=== PATIENT | male | born 1945 | race Caucasian/White ===

== ENCOUNTER 2020-12-23 08:56 | Day surgery (SDC) | payer BC, MEDICARE ==
[2020-12-23] MEDS ORDERED: Propofol 200 MG/20 ML SDV IV ONE (08:57)
[2020-12-23] MEDS ORDERED: Midazolam 1 MG/ML 2 ML SDV IV ONE (08:57)
[2020-12-23] MEDS ORDERED: Sodium Chloride 0.9% 10 ML Syringe FLUSH PRN (09:00)
[2020-12-23] MEDS ORDERED: Lactated Ringers 1,000 ML IV SCH (09:00)
[2020-12-23] MEDS ORDERED: ceFAZolin 1 GM in Sodium Chloride 0.9% 50 ML IV ONE (10:30)
[2020-12-23] MEDS ORDERED: ceFAZolin 1 GM Vial IVPUSH ONE (10:30)
[2020-12-23] MEDS ORDERED: Lidocaine 1% with EPINEPHrine 1:100,000 20 ML MDV INJECT ONE (10:50)
[2020-12-23] MEDS ORDERED: Bupivacaine 0.25% 30 ML SDV INJECT ONE (10:50)
[2020-12-23] MEDS ORDERED: Heparin Sodium 10 Units/ML 5 ML Syringe FLUSH ONE (10:51)
--- NOTE | 2020-12-23 11:32 | PCM.HPR ---
H & P Addendum review - H & P Addendum Review Date of Original H & P: 12/11/20 Date Reviewed: 12/23/20 Time Reviewed: 10:10 Patient was Examined: No Changes
--- NOTE | 2020-12-23 11:33 | PCM.OPNOTE ---
- General Post-Op/Procedure Note Date of Surgery/Procedure: 12/23/20 Operative Procedure(s): A port placement Pre Op Diagnosis: pancreatic Ca Post-Op Diagnosis: Same Anesthesia Technique: Local, MAC Primary Surgeon: Issac ANGUIANO in mLs: 5 Complications: None Condition: Good
--- NOTE | 2020-12-23 12:15 | CR ---
INDICATION: Port placement. C-ARM FLUOROSCOPY LESS THAN 1 HOUR IN OR: 1.1 minutes C-arm fluoroscopy time utilized in placement of a port. On a single image obtained, the port tip appears to be in the area of the SVC above the right atrium. MTDD
--- NOTE | 2020-12-23 12:35 | CR ---
INDICATION: Post port placement. CHEST ONE VIEW: An AP upright view of the chest was obtained 02/22/[address] of the chest dated 11/12/20. There is now noted an approximately 25-35% pneumothorax on the left. Heavy markings are noted which may be on the basis of pulmonary fibrosis in general. Again, no focal consolidating pneumonia or effusion was seen. The heart did not appear enlarged. The aorta is tortuous with calcification in the arch and descending portion. A left subclavian port is noted with its tip in good position in the SVC above the right atrium. IMPRESSION: 1. Pneumothorax right apical. 2. Port in good position. Report was given in person to Dr. Hester at 1200 hours 12/23/20. [facility]
[2020-12-23] MEDS ORDERED: Dexamethasone 4 MG/ML SDV IVPUSH ONE (12:43)
[2020-12-23] MEDS ORDERED: diphenhydrAMINE 50 MG/ML SDV IVPUSH ONE (12:44)
--- NOTE | 2020-12-23 13:57 | PCM.OPNOTE ---
- General Post-Op/Procedure Note Date of Surgery/Procedure: 12/23/20 Operative Procedure(s): Left CT Pre Op Diagnosis: Left PTX Post-Op Diagnosis: Same Anesthesia Technique: Local Primary Surgeon: Issac Hester Complications: None Condition: Good
--- NOTE | 2020-12-23 14:13 | OR ---
DATE OF OPERATION: 12/23/2020 SURGEON: Issac Hester MD PREOPERATIVE DIAGNOSIS: Pancreatic cancer, need for chemotherapy. POSTOPERATIVE DIAGNOSIS: Pancreatic cancer, need for chemotherapy. PROCEDURE: A port placement, left subclavian vein. ANESTHESIA: Local MAC. DESCRIPTION OF PROCEDURE: The patient was brought to the operating room where IV sedation was administered. Left chest and neck region were prepped with ChloraPrep and draped sterilely. 1% lidocaine with epinephrine was used for local anesthesia. Left subclavian vein was cannulated after 2 attempts with good dark blood return. J-wire was passed and in the superior vena cava confirmed on fluoroscopy. A port incision was then made and a pocket made inferiorly. I brought the wire into the incision and placed the dilator and Cook introducer over the wire. The dilator and wire were removed leaving the introducer in place. Catheter was then further previously flushed, catheter was then inserted, and the sheath peeled away. Fluoroscopy was used to confirm this at the level of the atrium and cut at 25 cm and connected to the previously flushed A port. This was aspirated and flushed with good return. A port was secured to the pectoral fascia with 2-0 Vicryl. Skin was closed with 4-0 Vicryl subcutaneous sutures and running 4-0 Vicryl subcuticular suture. Benzoin and Steri-Strips were placed and a sterile occlusive dressing applied. A 1-inch Lugo needle was then used to access the port and aspirated with good blood return. This was then flushed with 5 mL of heparin lock. Needle will be kept in place for next chemo session in 2 days. Chest x-ray will be obtained on same-day surgery. Estimated blood loss 5 mL. /[id number] RAMY/DANYA
--- NOTE | 2020-12-23 14:16 | CR ---
INDICATION: Post port placement pneumothorax re-check. CHEST ONE VIEW: PA expiration view of the chest 12/23/20 at 1316 hours was compared with 1153 hours and reveals a marked increase in the degree of pneumothorax on the left which appears to be 60-75% currently with atelectatic- appearing lung present. No other changes or new acute process was identified. Report was called immediately to Dr. Hester after the examination was completed. JOYA
--- NOTE | 2020-12-23 14:42 | CR ---
INDICATION: Post percutaneous chest tube placement. CHEST ONE VIEW: An AP portable upright view of the chest was obtained 12/23/20 at 1416 hours and compared with 1316 hours revealing a chest tube in place on the left with the pneumothorax almost completely evacuated with there being a residual of approximately 10%. No other change or new acute process was identified with minimal linear atelectatic change at the left lower lung field. MTDD
--- NOTE | 2020-12-24 06:00 | OR ---
DATE OF OPERATION: 12/23/2020 SURGEON: Issac Hester MD PREOPERATIVE DIAGNOSIS: Left pneumothorax. POSTOPERATIVE DIAGNOSIS: Left pneumothorax. PROCEDURE: Placement of percutaneous left chest tube. ANESTHESIA: Local. DESCRIPTION OF PROCEDURE: The patient had an A port placed this morning for chemotherapy. This was done to the left subclavian vein. Postoperative chest x- ray shows a pneumothorax. This was observed for an hour with a repeat chest x- ray which showed enlarging; therefore, chest tube was recommended. In the patient's room, his left anterior chest area was prepped with ChloraPrep and draped sterilely. 1% lidocaine was used for local anesthesia. In approximately the 3rd intercostal space, the catheter was inserted without difficulty. This was placed to tubing and a Heimlich valve with good air returned and fluttering of the valve. The catheter was secured in place with 2- 0 silk. A sterile dressing was applied. The patient tolerated this well. Postprocedure chest x-ray will be obtained. /[id number] RAMY/DANYA
== END 2020-12-23 14:38 | disposition home or self-care (01) ==
LOC: FB.SDS 08:56
PROVIDERS: ATTEND Surgery
DX: C25.9 Malignant neoplasm of pancreas, unspecified (principal); D35.02 Benign neoplasm of left adrenal gland; J93.9 Pneumothorax, unspecified; E78.5 Hyperlipidemia, unspecified; F17.210 Nicotine dependence, cigarettes, uncomplicated; Z88.8 Allergy status to other drugs, medicaments and biological substances
CPT/HCPCS: 00532-QZ; 71045; 76000; J0690; J1100; J1200; J1642; J2250; J2704; J3490; J7120

== ENCOUNTER 2020-12-27 15:57 | Inpatient (IN) | payer BC, MEDICARE ==
--- NOTE | 2020-12-27 17:09 | EDM.PDOC ---
ED HPI GENERAL MEDICAL PROBLEM - General Chief Complaint: Fever Stated Complaint: DRAINAGE IN CHEST TUBE Time Seen by Provider: 12/27/20 16:40 Source of Information: Reports: Patient History Limitations: Reports: No Limitations - History of Present Illness INITIAL COMMENTS - FREE TEXT/NARRATIVE: Pt with pneumothorax and chest tube placed on Saturday 12/23. developed fever of 100.4 and noted drainage in tube to have turned yellow . Took tylenol and came to ER denies any abd pain and diarrhea pt also has pancreatic cancer and is chemotherapy Onset: Today Location: Reports: Chest Quality: Reports: Ache Severity: Moderate Improves with: Reports: None Worsens with: Reports: None Associated Symptoms: Reports: Malaise Treatments REHAB AIDE: Reports: Acetaminophen - Related Data Allergies Allergy/AdvReac Type Severity Reaction Status Date / Time bupropion HCl Allergy Facial Verified 12/23/20 09:53 [From Wellbutrin] Swelling atorvastatin [From Lipitor] AdvReac Muscle Verified 12/23/20 09:53 Aches Home Meds: Home Meds Amylase/Lipase/Protease [Doris LAM 6,000 Unit] 2 cap PO TID 12/22/20 [History] Aspirin 81 mg PO DAILY 12/22/20 [History] LORazepam [Ativan] 1 mg PO TID 12/22/20 [History] Latanoprost [Xalatan 0.005% Ophth Soln] 1 drop EYEBOTH BEDTIME 12/22/20 [History] Lutein 10 mg PO DAILY 12/22/20 [History] Multivitamin 1 tab PO DAILY 12/22/20 [History] Omeprazole Magnesium [Prilosec Otc] 20 mg PO DAILY 12/22/20 [History] Pregabalin [Lyrica] 150 mg PO TID 12/22/20 [History] Sertraline [Zoloft] 150 mg PO DAILY 12/22/20 [History] Timolol [Betimol 0.5% Ophth Soln] 1 drop EYEBOTH BID 12/22/20 [History] traZODone 50 mg PO BEDTIME 12/22/20 [History] Past Medical History HEENT History: Reports: Glaucoma Cardiovascular History: Reports: High Cholesterol, PVD Respiratory History: Reports: None Gastrointestinal History: Reports: Diverticulosis, GERD Genitourinary History: Reports: None Musculoskeletal History: Reports: Neck Pain, Chronic Neurological History: Reports: Neuropathy, Peripheral Psychiatric History: Reports: Addiction, Anxiety, Depression, Other (See Below) Other Psychiatric History: ALCOHOLISM IN REMISSION. INSOMNIA Endocrine/Metabolic History: Reports: None Hematologic History: Reports: None Immunologic History: Reports: None Oncologic (Cancer) History: Reports: Pancreatic Dermatologic History: Reports: None - Past Surgical History Head Surgeries/Procedures: Reports: None HEENT Surgical History: Reports: None Cardiovascular Surgical History: Reports: None Respiratory Surgical History: Reports: None GI Surgical History: Reports: Colonoscopy Endocrine Surgical History: Reports: None Neurological Surgical History: Reports: Discectomy Musculoskeletal Surgical History: Reports: None Social & Family History - Caffeine Use Caffeine Use: ED ROS GENERAL - Review of Systems Review Of Systems: See Below Constitutional: Reports: Fever, Malaise, Weakness, Fatigue, Decreased Appetite HEENT: Reports: No Symptoms Respiratory: Reports: No Symptoms, Cough. Denies: Shortness of Breath, Wheezing, Pleuritic Chest Pain Cardiovascular: Reports: No Symptoms Endocrine: Reports: Fatigue GI/Abdominal: Reports: Anorexia, Decreased Appetite. Denies: Abdominal Pain : Reports: No Symptoms Musculoskeletal: Reports: No Symptoms Skin: Reports: Rash (chronic) Neurological: Reports: No Symptoms Psychiatric: Reports: No Symptoms Hematologic/Lymphatic: Reports: No Symptoms ED EXAM, SEPSIS - Physical Exam Exam: See Below Exam Limited By: No Limitations General Appearance: Alert, WD/WN, No Apparent Distress Eye Exam: Bilateral Eye: EOMI Ears: Normal External Exam Nose: Normal Inspection Throat/Mouth: Normal Oropharynx Head: Atraumatic, Normocephalic Neck: Supple, Non-Tender Respiratory/Chest: Lungs Clear, Normal Breath Sounds, Other (left sideo f chest wall with POrt: yellow discharge over port area noted ) Cardiovascular: Normal Peripheral Pulses (tube draining minimal yellow fluid) Peripheral Pulses: 2+: Dorsalis Pedis (L), Dorsalis Pedis (R) GI/Abdominal Exam: Soft, Non-Tender Back: Full Range of Motion Extremities: Normal Inspection, Normal Range of Motion Neurological: Alert, Oriented, CN II-XII Intact Psychiatric: Depressed Mood, Flat Affect Skin: Warm, Dry, Normal Color, Erythema Course - Vital Signs Last Recorded V/S: Last Vital Signs Temp 36.6 C 12/27/20 19:30 Pulse 69 12/27/20 19:30 Resp 16 12/27/20 19:30 BP 149/55 H 12/27/20 19:30 Pulse Ox 98 12/27/20 19:30 - Orders/Labs/Meds Orders: Active Orders 24 hr Category Date Time Status Patient Status [ADT] Routine ADT 12/27/20 18:48 Active Notify Provider Consults [RC] ASDIRECTED Care 12/27/20 18:59 Active Notify Provider Vital Signs [RC] ASDIRECTED Care 12/27/20 18:51 Active Oxygen Therapy [RC] PRN Care 12/27/20 18:48 Active RT Aerosol Therapy [RC] ASDIRECTED Care 12/27/20 18:57 Active VTE/DVT Education [RC] Per Unit Routine Care 12/27/20 18:48 Active Vital Signs [RC] Q4H Care 12/27/20 18:48 Active Consult to Physician [CONS] Routine Cons 12/27/20 18:47 Ordered Regular Diet [DIET] Diet 12/28/20 Breakfast Active Chest 2V [CR] AM Exams 12/28/20 05:11 Ordered CBC WITH AUTO DIFF [HEME] AM Lab 12/28/20 05:11 Ordered COMPREHENSIVE METABOLIC PN,CMP [CHEM] AM Lab 12/28/20 05:11 Ordered CULTURE BLOOD [BC] Urgent Lab 12/27/20 17:03 Received CULTURE BLOOD [BC] Urgent Lab 12/27/20 17:10 Received MAGNESIUM [CHEM] AM Lab 12/28/20 05:11 Ordered Acetaminophen [TylenoL] Med 12/27/20 18:47 Active 650 mg PO Q4H PRN Acetaminophen/HYDROcodone [Eagle 325-5 MG] Med 12/27/20 18:47 Active 1 tab PO Q4H PRN Albuterol [Proventil Neb Soln] Med 12/27/20 18:47 Active 2.5 mg NEB Q2H PRN Docusate Sodium/Sennosides [Senna Plus] Med 12/27/20 18:47 Active 1 tab PO BID PRN Ibuprofen [Motrin] Med 12/27/20 18:47 Active 600 mg PO Q6H PRN Magnesium Hydroxide [Milk of Magnesia] Med 12/27/20 18:47 Active 30 ml PO Q12H PRN Morphine Med 12/27/20 18:47 Active 2 mg IVPUSH Q2H PRN Ondansetron [Zofran ODT] Med 12/27/20 18:47 Active 4 mg PO Q4H PRN Sodium Chloride 0.9% [Normal Saline] 1,000 ml Med 12/27/20 17:15 Active IV ASDIRECTED Sodium Chloride 0.9% [Normal Saline] 1,000 ml Med 12/27/20 18:00 Active IV ASDIRECTED Zolpidem [Ambien] Med 12/27/20 18:47 Active 5 mg PO BEDTIME PRN Blood Culture x2 Reflex Set [OM.PC] Urgent Oth 12/27/20 16:54 Ordered Resuscitation Status Routine Resus Stat 12/27/20 18:47 Ordered Medication Orders Acetaminophen (Acetaminophen 325 Mg Tab) 650 mg PO Q4H PRN PRN Reason: Pain (Mild 1-3)/fever Hydrocodone Bitart/Acetaminophen (Acetaminophen/Hydrocodone 325-5 Mg Tab) 1 tab PO Q4H PRN PRN Reason: Pain (moderate 4-6) Albuterol (Albuterol 0.083% 2.5 Mg/3 Ml Neb Soln) 2.5 mg NEB Q2H PRN PRN Reason: Shortness Of Breath/wheezing Lipase/Protease/Amylase (Amylase/Lipase/Protease 5,000 Unit Cap.Cr) 2 cap PO TID [facility] Last Admin: 12/27/20 20:47 Dose: 2 cap Documented by: UMER Aspirin (Aspirin 81 Mg Tab.Chew) 81 mg PO DAILY [facility] Sodium Chloride (Normal Saline) 1,000 mls @ 100 mls/hr IV ASDIRECTED [facility] Last Admin: 12/27/20 20:23 Dose: 100 mls/hr Documented by: Infusion: 12/27/20 19:51 Dose: 1,000 mls/hr Documented by: Infusion: 12/27/20 19:00 Dose: 1,000 mls/hr Documented by: Admin: 12/27/20 17:30 Dose: 100 mls/hr Documented by: YONATHAN Sodium Chloride (Normal Saline) 1,000 mls @ 999 mls/hr IV ASDIRECTED [facility] Piperacillin Sod/Tazobactam (Sod 3.375 gm/ Sodium Chloride) 50 mls @ 100 mls/hr IV Q6H [facility] Last Admin: 12/28/20 00:04 Dose: 100 mls/hr Documented by: UMER Ibuprofen (Ibuprofen 600 Mg Tab) 600 mg PO Q6H PRN PRN Reason: Pain (mild 1-3) Latanoprost (Latanoprost 0.005% Ophth Soln 2.5 Ml Bottle) 0 ml EYEBOTH BEDTIME [facility] Last Admin: 12/27/20 20:45 Dose: 1 drop Documented by: UMER Lorazepam (Lorazepam 1 Mg Tab) 1 mg PO TID [facility] Last Admin: 12/27/20 20:46 Dose: 1 mg Documented by: UMER Magnesium Hydroxide (Magnesium Hydroxide 400 Mg/5 Ml Susp 30 Ml Cup) 30 ml PO Q12H PRN PRN Reason: Constipation Morphine Sulfate (Morphine 2 Mg/Ml Syringe) 2 mg IVPUSH Q2H PRN PRN Reason: Pain (severe 7-10) Ondansetron HCl (Ondansetron 4 Mg Tab.Dis) 4 mg PO Q4H PRN PRN Reason: nausea, able to take PO Pantoprazole Sodium (Pantoprazole 40 Mg Tab.Cr) 40 mg PO ACBREAKFAST [facility] Pregabalin (Pregabalin 75 Mg Cap) 150 mg PO TID [facility] Last Admin: 12/27/20 20:45 Dose: 150 mg Documented by: UMER Senna/Docusate Sodium (Docusate Sodium/Sennosides 50-8.6 Mg Tab) 1 tab PO BID PRN PRN Reason: Constipation Sertraline HCl (Sertraline 100 Mg Tab) 150 mg PO DAILY [facility] Timolol Maleate (Timolol Maleate 0.5% Ophth Soln 5 Ml Bottle) 0 ml EYEBOTH BID [facility] Last Admin: 12/27/20 20:52 Dose: Not Given Documented by: UMER Zolpidem Tartrate (Zolpidem 5 Mg Tab) 5 mg PO BEDTIME PRN PRN Reason: Sleep Labs: Laboratory Tests 12/27/20 12/27/20 12/27/20 Range/Units 17:10 17:10 17:10 WBC 8.6 (3.2-10.1) x10-3/uL RBC 3.85 L (3.90-5.90) x10(6)uL Hgb 11.8 L (12.9-17.7) g/dL Hct 35.0 L (38.3-50.1) % MCV 90.9 (80.8-98.7) fL MCH 30.8 (27.0-33.3) pg MCHC 33.8 (28.7-35.3) g/dL RDW 13.8 (12.4-15.0) % Plt Count 158 (117-477) x10(3)uL MPV 9.5 (6.7-11.0) fL Add Manual Diff Yes Neutrophils % (Manual) 91 H (46-82) % Band Neutrophils % 3 (0-6) % Lymphocytes % (Manual) 3 L (13-37) % Monocytes % (Manual) 1 L (4-12) % Eosinophils % (Manual) 2 (0-5) % Sodium 137 (135-145) mmol/L Potassium 4.1 (3.5-5.3) mmol/L Chloride 99 L D (100-110) mmol/L Carbon Dioxide 26 (21-32) mmol/L BUN 12 (7-18) mg/dL Creatinine 0.9 (0.70-1.30) mg/dL Est Cr Clr Drug Dosing 75.04 mL/min Estimated GFR (MDRD) > 60 (>60) BUN/Creatinine Ratio 13.3 (9-20) Glucose 283 H D (80-116) mg/dL Lactic Acid 2.0 (0.4-2.0) mmol/L Calcium 9.4 (8.6-10.2) mg/dL Total Bilirubin 1.5 H (0.1-1.3) mg/dL AST 43 H D (5-25) IU/L ALT 78 H D (12-36) U/L Alkaline Phosphatase 413 H (56-112) IU/L C-Reactive Protein (0.5-0.9) mg/dL NT-Pro-B Natriuret Pep (<=125) pg/mL Total Protein 6.2 (6.0-8.0) g/dL Albumin 3.0 L (3.2-4.6) g/dL Globulin 3.2 g/dL Albumin/Globulin Ratio 0.9 12/27/20 12/27/20 Range/Units 17:10 17:10 WBC (3.2-10.1) x10-3/uL RBC (3.90-5.90) x10(6)uL Hgb (12.9-17.7) g/dL Hct (38.3-50.1) % MCV (80.8-98.7) fL MCH (27.0-33.3) pg MCHC (28.7-35.3) g/dL RDW (12.4-15.0) % Plt Count (117-477) x10(3)uL MPV (6.7-11.0) fL Add Manual Diff Neutrophils % (Manual) (46-82) % Band Neutrophils % (0-6) % Lymphocytes % (Manual) (13-37) % Monocytes % (Manual) (4-12) % Eosinophils % (Manual) (0-5) % Sodium (135-145) mmol/L Potassium (3.5-5.3) mmol/L Chloride (100-110) mmol/L Carbon Dioxide (21-32) mmol/L BUN (7-18) mg/dL Creatinine (0.70-1.30) mg/dL Est Cr Clr Drug Dosing mL/min Estimated GFR (MDRD) (>60) BUN/Creatinine Ratio (9-20) Glucose (80-116) mg/dL Lactic Acid (0.4-2.0) mmol/L Calcium (8.6-10.2) mg/dL Total Bilirubin (0.1-1.3) mg/dL AST (5-25) IU/L ALT (12-36) U/L Alkaline Phosphatase (56-112) IU/L C-Reactive Protein 32.7 H* (0.5-0.9) mg/dL NT-Pro-B Natriuret Pep 159 H (<=125) pg/mL Total Protein (6.0-8.0) g/dL Albumin (3.2-4.6) g/dL Globulin g/dL Albumin/Globulin Ratio Meds: Medications Generic Name Dose Route Start Last Admin Trade Name Freq PRN Reason Stop Dose Admin Acetaminophen 650 mg 12/27/20 18:47 Acetaminophen 325 Mg Tab PO Q4H PRN Pain (Mild 1-3)/fever Hydrocodone Bitart/Acetaminophen 1 tab 12/27/20 18:47 Acetaminophen/Hydrocodone 325-5 Mg Tab PO Q4H PRN Pain (moderate 4-6) Albuterol 2.5 mg 12/27/20 18:47 Albuterol 0.083% 2.5 Mg/3 Ml Neb Soln NEB Q2H PRN Shortness Of Breath/wheezing Lipase/Protease/Amylase 2 cap 12/27/20 21:00 12/27/20 20:47 Amylase/Lipase/Protease 5,000 Unit Cap.Cr PO 2 cap TID DIPTI Administration Aspirin 81 mg 12/28/20 09:00 Aspirin 81 Mg Tab.Chew PO DAILY DIPTI Sodium Chloride 1,000 mls @ 100 mls/hr 12/27/20 17:15 12/27/20 20:23 Normal Saline IV 100 mls/hr ASDIRECTED DIPTI Administration Sodium Chloride 1,000 mls @ 999 mls/hr 12/27/20 18:00 Normal Saline IV ASDIRECTED [facility]IP[facility] Piperacillin Sod/Tazobactam 50 mls @ 100 mls/hr 12/28/20 00:00 12/28/20 00:04 Sod 3.375 gm/ Sodium Chloride IV 100 mls/hr Q6H DIPTI Administration Ibuprofen 600 mg 12/27/20 18:47 Ibuprofen 600 Mg Tab PO Q6H PRN Pain (mild 1-3) Latanoprost 0 ml 12/27/20 21:00 12/27/20 20:45 Latanoprost 0.005% Ophth Soln 2.5 Ml Bottle EYEBOTH 1 drop BEDTIME DIPTI Administration Lorazepam 1 mg 12/27/20 21:00 12/27/20 20:46 Lorazepam 1 Mg Tab PO 1 mg TID DIPTI Administration Magnesium Hydroxide 30 ml 12/27/20 18:47 Magnesium Hydroxide 400 Mg/5 Ml Susp 30 Ml Cup PO Q12H PRN Constipation Morphine Sulfate 2 mg 12/27/20 18:47 Morphine 2 Mg/Ml Syringe IVPUSH Q2H PRN Pain (severe 7-10) Ondansetron HCl 4 mg 12/27/20 18:47 Ondansetron 4 Mg Tab.Dis PO Q4H PRN nausea, able to take PO Pantoprazole Sodium 40 mg 12/28/20 07:30 Pantoprazole 40 Mg Tab.Cr PO ACBREAKFAST DIP[facility] Pregabalin 150 mg 12/27/20 21:00 12/27/20 20:45 Pregabalin 75 Mg Cap PO 150 mg TID [facility]IP[facility] Administration Senna/Docusate Sodium 1 tab 12/27/20 18:47 Docusate Sodium/Sennosides 50-8.6 Mg Tab PO BID PRN Constipation Sertraline HCl 150 mg 12/28/20 09:00 Sertraline 100 Mg Tab PO DAILY [facility] Timolol Maleate 0 ml 12/27/20 21:00 12/27/20 20:52 Timolol Maleate 0.5% Ophth Soln 5 Ml Bottle EYEBOTH Not Given BID [facility]IP[facility] Zolpidem Tartrate 5 mg 12/27/20 18:47 Zolpidem 5 Mg Tab PO BEDTIME PRN Sleep Discontinued Medications Generic Name Dose Route Start Last Admin Trade Name Freq PRN Reason Stop Dose Admin Piperacillin Sod/Tazobactam 50 mls @ 100 mls/hr 12/27/20 17:15 12/27/20 18:06 Sod 3.375 gm/ Sodium Chloride IV 12/27/20 17:44 100 mls/hr NOW STA Administration Piperacillin Sod/Tazobactam 50 mls @ 100 mls/hr 12/27/20 19:00 12/27/20 19:38 Sod 3.375 gm/ Sodium Chloride IV Not Given Q6H [facility] Saccharomyces Boulardii 250 mg 12/27/20 17:15 12/27/20 18:23 Saccharomyces Boulardii (Probiotic) 250 Mg Cap PO 12/27/20 17:16 250 mg NOW STA Administration Departure - Departure Time of Disposition: 19:20 Disposition: Admitted As Inpatient 68 Condition: Fair Clinical Impression: Fever, Pneumothorax due to and not concurrent with procedure, Pancreatic cancer, Sepsis associated with vascular access catheter - Discharge Information *PRESCRIPTION DRUG MONITORING PROGRAM REVIEWED*: Not Applicable *COPY OF PRESCRIPTION DRUG MONITORING REPORT IN PATIENT TARUN: Not Applicable Sepsis Event Note (ED) - Evaluation Sepsis Screening Result: Possible Sepsis Risk - Focused Exam Vital Signs: Vital Signs Temp Pulse Resp BP Pulse Ox 12/27/20 15:57 37.1 C 94 16 125/62 97 - My Orders Last 24 Hours: My Active Orders 12/27/20 16:54 Blood Culture x2 Reflex Set [OM.PC] Urgent 12/27/20 17:03 CULTURE BLOOD [BC] Urgent 12/27/20 17:10 CULTURE BLOOD [BC] Urgent 12/27/20 17:15 Sodium Chloride 0.9% [Normal Saline] 1,000 ml IV ASDIRECTED 12/27/20 18:00 Sodium Chloride 0.9% [Normal Saline] 1,000 ml IV ASDIRECTED 12/27/20 18:47 Consult to Physician [CONS] Routine Acetaminophen [TylenoL] 650 mg PO Q4H PRN Acetaminophen/HYDROcodone [Eagle 325-5 MG] 1 tab PO Q4H PRN Albuterol [Proventil Neb Soln] 2.5 mg NEB Q2H PRN Docusate Sodium/Sennosides [Senna Plus] 1 tab PO BID PRN Ibuprofen [Motrin] 600 mg PO Q6H PRN Magnesium Hydroxide [Milk of Magnesia] 30 ml PO Q12H PRN Morphine 2 mg IVPUSH Q2H PRN Ondansetron [Zofran ODT] 4 mg PO Q4H PRN Zolpidem [Ambien] 5 mg PO BEDTIME PRN Resuscitation Status Routine 12/27/20 18:48 Patient Status [ADT] Routine Oxygen Therapy [RC] PRN VTE/DVT Education [RC] Per Unit Routine Vital Signs [RC] Q4H 12/27/20 18:51 Notify Provider Vital Signs [RC] ASDIRECTED 12/27/20 18:57 RT Aerosol Therapy [RC] ASDIRECTED 12/27/20 18:59 Notify Provider Consults [RC] ASDIRECTED 12/28/20 05:11 Chest 2V [CR] AM CBC WITH AUTO DIFF [HEME] AM COMPREHENSIVE METABOLIC PN,CMP [CHEM] AM MAGNESIUM [CHEM] AM 12/28/20 Breakfast Regular Diet [DIET] - Assessment/Plan Last 24 Hours: My Active Orders 12/27/20 16:54 Blood Culture x2 Reflex Set [OM.PC] Urgent 12/27/20 17:03 CULTURE BLOOD [BC] Urgent 12/27/20 17:10 CULTURE BLOOD [BC] Urgent 12/27/20 17:15 Sodium Chloride 0.9% [Normal Saline] 1,000 ml IV ASDIRECTED 12/27/20 18:00 Sodium Chloride 0.9% [Normal Saline] 1,000 ml IV ASDIRECTED 12/27/20 18:47 Consult to Physician [CONS] Routine Acetaminophen [TylenoL] 650 mg PO Q4H PRN Acetaminophen/HYDROcodone [Eagle 325-5 MG] 1 tab PO Q4H PRN Albuterol [Proventil Neb Soln] 2.5 mg NEB Q2H PRN Docusate Sodium/Sennosides [Senna Plus] 1 tab PO BID PRN Ibuprofen [Motrin] 600 mg PO Q6H PRN Magnesium Hydroxide [Milk of Magnesia] 30 ml PO Q12H PRN Morphine 2 mg IVPUSH Q2H PRN Ondansetron [Zofran ODT] 4 mg PO Q4H PRN Zolpidem [Ambien] 5 mg PO BEDTIME PRN Resuscitation Status Routine 12/27/20 18:48 Patient Status [ADT] Routine Oxygen Therapy [RC] PRN VTE/DVT Education [RC] Per Unit Routine Vital Signs [RC] Q4H 12/27/20 18:51 Notify Provider Vital Signs [RC] ASDIRECTED 12/27/20 18:57 RT Aerosol Therapy [RC] ASDIRECTED 12/27/20 18:59 Notify Provider Consults [RC] ASDIRECTED 12/28/20 05:11 Chest 2V [CR] AM CBC WITH AUTO DIFF [HEME] AM COMPREHENSIVE METABOLIC PN,CMP [CHEM] AM MAGNESIUM [CHEM] AM 12/28/20 Breakfast Regular Diet [DIET]
[2020-12-27] MEDS ORDERED: Saccharomyces Boulardii (Probiotic) 250 MG Cap PO STA (17:15)
[2020-12-27] MEDS ORDERED: Piperacillin/Tazobactam 3.375 GM in Sodium Chloride 0.9% 50 ML IV STA (17:15)
[2020-12-27] MEDS: Sodium Chloride 0.9% 1,000 ML IV SCH ×2 (17:30→20:23)
[2020-12-27] MEDS ORDERED: Sodium Chloride 0.9% 1,000 ML IV SCH (18:00)
[2020-12-27] MEDS ORDERED: Morphine 2 MG/ML SYRINGE IVPUSH PRN (18:47)
[2020-12-27] MEDS ORDERED: Acetaminophen/HYDROcodone 325-5 MG Tab PO PRN (18:47)
[2020-12-27] MEDS ORDERED: Ibuprofen 600 MG Tab PO PRN (18:47)
[2020-12-27] MEDS ORDERED: Albuterol 0.083% 2.5 MG/3 ML Neb Soln NEB PRN (18:47)
[2020-12-27] MEDS ORDERED: Zolpidem 5 MG Tab PO PRN (18:47)
[2020-12-27] MEDS ORDERED: Magnesium Hydroxide 400 MG/5 ML Susp 30 ML Cup PO PRN (18:47)
[2020-12-27] MEDS ORDERED: Ondansetron 4 MG Tab.DIS PO PRN (18:47)
[2020-12-27] MEDS ORDERED: Piperacillin/Tazobactam 3.375 GM in Sodium Chloride 0.9% 50 ML IV SCH (19:00)
[2020-12-27] MEDS: Timolol Maleate 0.5% Ophth Soln 5 ML Bottle EYEBOTH SCH ×2 (20:44→20:52)
[2020-12-27] MEDS: Pregabalin 75 MG Cap PO SCH (20:45)
[2020-12-27] MEDS: LORazepam 1 MG Tab PO SCH (20:46)
[2020-12-27] MEDS: Amylase/Lipase/Protease 5,000 Unit Cap.CR PO SCH (20:47)
[2020-12-27] MEDS ORDERED: Latanoprost 0.005% Ophth Soln 2.5 ML Bottle EYEBOTH SCH (21:00)
[2020-12-28] MEDS: Piperacillin/Tazobactam 3.375 GM in Sodium Chloride 0.9% 50 ML IV SCH ×5 (00:04→23:28)
[2020-12-28] MEDS: Acetaminophen 325 MG Tab PO PRN (02:45)
[2020-12-28] MEDS: Pantoprazole 40 MG Tab.CR PO SCH (06:33)
[2020-12-28] MEDS: Sodium Chloride 0.9% 1,000 ML IV SCH ×2 (06:33→16:52)
[2020-12-28] MEDS: Aspirin 81 MG Tab.Chew PO SCH (08:19)
[2020-12-28] MEDS: Pregabalin 75 MG Cap PO SCH ×3 (08:19→20:34)
[2020-12-28] MEDS: LORazepam 1 MG Tab PO SCH ×4 (08:20→20:34)
[2020-12-28] MEDS ORDERED: Sertraline 100 MG Tab PO SCH (09:00)
[2020-12-28] MEDS: Amylase/Lipase/Protease 5,000 Unit Cap.CR PO SCH ×2 (09:12→16:26)
[2020-12-28] MEDS: Timolol Maleate 0.5% Ophth Soln 5 ML Bottle EYEBOTH SCH ×2 (09:20→09:23)
[2020-12-28] MEDS: Sertraline 50 MG Tab PO SCH (10:04)
[2020-12-28] MEDS ORDERED: Sennosides 8.6 MG Tab PO PRN (16:42)
[2020-12-28] MEDS: Prochlorperazine 5 MG Tab PO PRN (16:50)
--- NOTE | 2020-12-28 18:16 | PN ---
DATE SEEN: 12/28/2020 This patient was hospitalized yesterday with fever. He has a known diagnosis of pancreatic cancer and had chemotherapy three days ago. He had a port placed earlier in the week with a pneumothorax. There was some yellowish drainage from the chest tube noted yesterday. I saw him this morning, and there is some yellow clear serous drainage in the tube but no evidence of infection. His A- port site and chest tube insertion site both look good. His chest x-ray does not show any pneumothorax. I hooked him up to chest tube suction, and there was no air leak present. Therefore, I clamped his tube and repeated the chest x-ray in one hour, and there was no reaccumulation of the pneumothorax. Chest tube was re-hooked to suction, and there, again, was no air leak. Therefore, the chest tube was removed and a Band-Aid placed. He tolerated this well. I spoke with Dr. Trujillo, and he will continue IV antibiotics until a source of infection, if present, is identified. A-port site will be watched closely, but again, there is no evidence of infection at this time. /[id number] RAMY/DANYA
--- NOTE | 2020-12-28 18:17 | HP ---
ADMISSION DATE: 12/27/2020 REASON FOR ADMISSION: Malaise, fever, recent pneumothorax and intervention. HISTORY OF PRESENT ILLNESS: Mich Abdalla is a 75-year-old male who resides in [place], was seen and evaluated in [facility] ER on 12/27/2020. Presented with some serosanguineous drainage from the chest tube, Goran-Aid in color, fever of 104, a sense of reduced well-being. No other particular complaints or concerns. Diagnosed of pancreatic cancer in September, undergoing chemotherapy. Last chemotherapy of last week. Chest tube had been placed on 12/23/2020. Dr. Jt Hester, provider of record, is part of the ongoing care. HOME MEDICATIONS: Include: 1. Lutein 10 mg 1 p.o. daily, nutrition. 2. Multivitamin 1 daily, nutrition. 3. Trazodone 50 mg at bedtime, sleep enhancement. 4. Baby aspirin 81 mg. 5. Lorazepam 1 mg t.i.d. p.r.n., anxiety. 6. Prilosec 20 mg 1 p.o. daily, GERD. 7. Pregabalin 1 p.o. t.i.d. 8. Sertraline 150 mg daily, mood stabilizer. 9. Medicated timolol eye drops. ALLERGIES: Wellbutrin, facial swelling; atorvastatin, muscle aches. PAST MEDICAL HISTORY: Significant for 2 previous lumbar disk surgeries. Has had a remote tonsillectomy. No other operative procedures, hospitalizations, unusual childhood diseases, major injuries, or fractures. Medical problems have been for the most part absent prior to his recent diagnosis. SOCIAL HISTORY: Lives in [place]. 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 in good health. Two sons, 2 granddaughters. 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 REVIEW OF SYSTEMS: A 13-bullet review of systems. CONSTITUTIONAL: Feeling okay. EYES: Sees well. EARS: Hears well. OROPHARYNX: Intact dentition. CV: Denies chest pain, palpitations, syncope. RESPIRATORY: Intermittent cough. GI: Some vague abdominal pain. : Voiding comfortably. No blood in urine. Stools have been a little bit reluctant. SKIN: No lesions, eruptions, or moles. ENDOCRINE: No excessive urination. History of hyperlipidemia. ORTHOPEDIC: Generalized aches and pains. PHYSICAL EXAMINATION: VITAL SIGNS: 36.8, 82, 142/42, 16, 92% on room air. GENERAL: Young man, comfortable, slightly bearded. Gives a good history. HEENT: Funduscopic benign. Bright TMs. Clear nasal discharge. Mouth and oropharynx clear. Fair dentition. Tongue midline. NECK: Benign. Thyroid small. CHEST: On auscultation, clear in all lung jones. A port in place in left upper chest. HEART: Distant heart sounds. Normal S1, S2. No S3, S4, or murmur. ABDOMEN: Benign. Diffusely tender. : Declined. RECTAL: Declined. EXTREMITIES: Well perfused. SKIN: No petechial rash, eruptions, or moles. LABORATORY STUDIES: CBC revealed 11,800, repeat 10.2; 8600, repeat 8000; mild neutrophilia 91 and 89. Glucose 283 and 136, bilirubin 1.5 and 3.3, AST 43 and 110, ALT 78 and 89, alkaline phosphatase 413 and 420, CRP 32.7. Radiographs; chest x-ray, a port in place. ASSESSMENT: Fever with underlying recent central line, pneumothorax, underlying cancer. PLAN: Blood cultures have been obtained. He is presently on piperacillin/tazobactam 3.375 g q.6 hours. Fever control intervention and care, stool softeners will be obtained. /[id number] LORETO/DANYA
[2020-12-29] MEDS: Acetaminophen 325 MG Tab PO PRN ×2 (02:29→21:07)
[2020-12-29] MEDS: Sodium Chloride 0.9% 1,000 ML IV SCH (04:15)
[2020-12-29] MEDS: Piperacillin/Tazobactam 3.375 GM in Sodium Chloride 0.9% 50 ML IV SCH ×4 (05:30→23:56)
[2020-12-29] MEDS: Pantoprazole 40 MG Tab.CR PO SCH (06:40)
[2020-12-29] MEDS: Sertraline 50 MG Tab PO SCH (08:36)
[2020-12-29] MEDS: Aspirin 81 MG Tab.Chew PO SCH (08:36)
[2020-12-29] MEDS: Prochlorperazine 5 MG Tab PO PRN (08:36)
[2020-12-29] MEDS: Pregabalin 75 MG Cap PO SCH ×3 (08:44→21:03)
[2020-12-29] MEDS: LORazepam 1 MG Tab PO SCH ×3 (08:44→21:02)
--- NOTE | 2020-12-29 10:33 | PN ---
DATE SEEN: 12/29/2020 SUBJECTIVE: Mich Abdalla is a 75-year-old male admitted with fever, chills, lethargy, some suspicion for sepsis. He had recently had left-sided intravenous port placed, post port pneumothorax, placement of appropriate ventilatory device, which was removed on the day of admission by Dr. Hester. Blood cultures as of this morning 0900 hours negative. Reviewed recent laboratory studies; CBC x2 was stable. Feeling a little better. Wants to continue the IV fluids. Appetite markedly reduced. OBJECTIVE: VITAL SIGNS: 36.6, 71, 124/89, 16, and 97%. GENERAL: Soft spoken but appropriate. MOUTH and OROPHARYNX: Clear. NECK: Benign. Thyroid small. No adenopathy. CHEST: Clear in all lung jones. HEART: No ectopy or murmur. ABDOMEN: Benign. Port and chest tube site healing well. ASSESSMENT: Fever, undetermined. PLAN: We will await at least 48 hours for cultures to follow. Continue IV fluids. Continue with IV antibiotic therapy. /[id number] LORETO/DANYA
[2020-12-29] MEDS ORDERED: diphenhydrAMINE 25 MG Cap PO PRN (16:08)
[2020-12-29] MEDS: Triamcinolone Acetonide 0.1% Crm 80 GM Tube TOP SCH ×2 (16:19→21:00)
[2020-12-30] MEDS: Piperacillin/Tazobactam 3.375 GM in Sodium Chloride 0.9% 50 ML IV SCH ×2 (06:07→11:04)
[2020-12-30] MEDS: Sodium Chloride 0.9% 10 ML Syringe FLUSH PRN ×2 (06:08)
[2020-12-30] MEDS: Pantoprazole 40 MG Tab.CR PO SCH (06:34)
[2020-12-30] MEDS: Aspirin 81 MG Tab.Chew PO SCH (08:23)
[2020-12-30] MEDS: Sertraline 50 MG Tab PO SCH (08:24)
[2020-12-30] MEDS: LORazepam 1 MG Tab PO SCH (08:29)
[2020-12-30] MEDS: Pregabalin 75 MG Cap PO SCH (08:30)
[2020-12-30] MEDS: Triamcinolone Acetonide 0.1% Crm 80 GM Tube TOP SCH (09:22)
[2020-12-30] MEDS: Prochlorperazine 5 MG Tab PO PRN (09:27)
--- NOTE | 2020-12-30 11:13 | DISCH ---
DISCHARGE DATE: 12/30/2020 HISTORY OF PRESENT ILLNESS: Mich Abdalla is a 75-year-old male admitted with low-grade fever, lethargy, and a sense of reduced well-being. Sepsis is a clinical concern. He had a recent intravenous port placed, had a post port pneumothorax, had placement of outpatient chest tube and discharged in good condition. Had been seen by Dr. Hester and evaluated. Please see his clinical notes. Had noted fever, chills, sweats, lethargy, and a sense of reduced well-being. Fever spiked about 100.4. Blood cultures and wound cultures were obtained. ALLERGIES: Allergic to ibuprofen, facial swelling; Lipitor, muscle aches. MEDICATIONS: Admitting home medications include: 1. Senokot mg at bedtime p.r.n. constipation. 2. Compazine 10 mg b.i.d. p.r.n. for nausea. 3. Lorazepam 1 mg daily p.r.n., anxiety. 4. Trazodone 50 mg at bedtime, sleep enhancement. 5. Sertraline 150 mg 1 p.o. daily, mood disorder. 6. Lyrica 150, 1 p.o. t.i.d. 7. Prilosec 20 mg OTC. 8. Host of [id number] medication. HOSPITAL COURSE: The patient was admitted, sepsis was a concern. He was placed on IV antibiotics during his hospital stay. Blood cultures at the time of discharge 60 plus hours negative, wound culture negative. Fever did not reappear. He was given IV fluids during his early hospital stay. Made adjustments of medication for sleep, nausea, and control of itching. At the time of discharge, Mich was in stable status. DISCHARGE PHYSICAL EXAMINATION: VITAL SIGNS: 36.8, 58, 132/23, 14, 99%. GENERAL: Speech was fluent. NECK: Benign. Thyroid small. CHEST: Clear in all lung jones. HEART: No ectopy or murmur. ABDOMEN: Benign. Fever, undetermined origin. No signs of sepsis, urosepsis, wound infection. SECONDARY DIAGNOSIS: Pancreatic cancer, under treatment. PLAN: Discharge home with followup with primary care and Oncology. No change in medications or care. /[id number] LORETO/DANYA
--- NOTE | 2020-12-30 16:36 | CR ---
INDICATION: Re-check after valve closed 1 hour. CHEST ONE VIEW: An AP upright portable view of the chest 12/28/20 was compared with 12/28/20 earlier on the same day. The current study is 1052 hours. The previous was 0833 hours. Findings were also compared with 01/22/21. There is again noted a pneumothorax on the left which appears to be increased in size compared with the previous study and is probably approximately 10-15%. Chest tube remains in place. A central line remains in place unchanged in position from the left subclavian. No other change or new acute process was identified. There is again what may represent a linear atelectatic strand unchanged at the left lower lung field. MTDD
--- NOTE | 2020-12-30 16:43 | CR ---
INDICATION: Re-check pneumothorax and chest tube. CHEST ONE VIEW, 12/28/20 AT 0833 HOURS: Single AP portable upright view of the chest at 0833 hours was compared with 12/23/20 and revealed the pneumothorax on the left to be almost completely resolved with chest tube noted in place. A probable linear atelectatic strand is noted at the left lung base versus artifact in that area. A new acute process was not suggested. MTDD
== END 2020-12-30 12:55 | disposition home or self-care (01) | DRG 722 ==
LOC: FB.ED 15:57 → FB.MS 18:48
PROVIDERS: ADMIT Family Medicine; ATTEND Family Medicine
DX: R50.9 Fever, unspecified (principal); C25.9 Malignant neoplasm of pancreas, unspecified; E78.5 Hyperlipidemia, unspecified; K57.90 Diverticulosis of intestine, part unspecified, without perforation or abscess without bleeding; E78.00 Pure hypercholesterolemia, unspecified; H40.9 Unspecified glaucoma; I73.9 Peripheral vascular disease, unspecified; K21.9 Gastro-esophageal reflux disease without esophagitis; G89.29 Other chronic pain; M54.2 Cervicalgia; F41.9 Anxiety disorder, unspecified; F32.9 Major depressive disorder, single episode, unspecified; G62.9 Polyneuropathy, unspecified; G47.00 Insomnia, unspecified; F10.21 Alcohol dependence, in remission; Z79.899 Other long term (current) drug therapy; Z88.8 Allergy status to other drugs, medicaments and biological substances; Z90.89 Acquired absence of other organs; Z98.890 Other specified postprocedural states; Z79.82 Long term (current) use of aspirin; Z88.6 Allergy status to analgesic agent
CPT/HCPCS: 36415; 71045; 80053; 83605; 83735; 83880; 85025; 85610; 86140; 87040; 87070; 87205; 94150; 99284-25; 99285; A9270-GY; J2543; J7030; Q0164

== ENCOUNTER 2021-02-21 17:41 | Emergency (ER) | payer BC, MEDICARE ==
[2021-02-21] MEDS ORDERED: Acetaminophen/HYDROcodone 325-5 MG Tab PO ONE (17:42)
--- NOTE | 2021-02-21 17:54 | EDM.PDOC ---
ED HPI GENERAL MEDICAL PROBLEM - General Stated Complaint: FALL Time Seen by Provider: 02/21/21 17:52 Source of Information: Reports: Patient History Limitations: Reports: No Limitations - History of Present Illness INITIAL COMMENTS - FREE TEXT/NARRATIVE: 75-year-old male with pancreatic cancer who has made a decision to not have chemotherapy and reports that he was walking around his house yesterday evening and his "legs just gave way on him and he fell landing on his right leg. He states he was able to get up and walk after this and when he was walking to another part of the house his legs gave way again and he fell landing again on his right leg and foot. Since then he has had increasing pain in his right foot, ankle and lower leg and knee. Has also been increased swelling in this ankle and foot. He has had swelling in both feet and both ankles for the past few weeks. He is not really concerned about the legs giving way and him falling and he really doesn't want me to look into that or do any testing. He is concerned about the possibility of there being a fracture in his right lower leg, ankle and foot and he wants me to do x-rays of these areas. He would rate the pain as an 8/10. The pain is sharp and it is worse with palpation and with movements of his foot, ankle and knee. I did offer him pain medication but he refuses at this time stating that he really only wants to know if he has a fracture and if he would possibly need a brace. There are no other associated signs or symptoms. There are no other modifying factors. Onset: Other (Yesterday at 8 PM) Duration: Constant Location: Reports: Lower Extremity, Right Quality: Reports: Sharp Severity: Moderate (to severe.) Improves with: Reports: Rest Worsens with: Reports: Other (Palpation), Movement Context: Reports: Trauma (Fall as above.) Associated Symptoms: Reports: No Other Symptoms (Except as above.) Treatments CANCER SPEC: Reports: NSAIDS Right Ankle Pain Score (Numeric/FACES): 7 - Related Data Allergies Allergy/AdvReac Type Severity Reaction Status Date / Time bupropion HCl Allergy Facial Verified 12/23/20 09:53 [From Wellbutrin] Swelling atorvastatin [From Lipitor] AdvReac Muscle Verified 12/23/20 09:53 Aches Home Meds: Home Meds LORazepam [Ativan] 1.5 mg PO BEDTIME 12/22/20 [History] Multivitamin 1 tab PO DAILY 12/22/20 [History] Omeprazole Magnesium [Prilosec Otc] 20 mg PO DAILY 12/22/20 [History] Pregabalin [Lyrica] 150 mg PO TID 12/22/20 [History] Sertraline [Zoloft] 150 mg PO DAILY 12/22/20 [History] traZODone 50 mg PO BEDTIME 12/22/20 [History] LORazepam [Lorazepam] 1 mg PO DAILY PRN 12/29/20 [History] Prochlorperazine [Compazine] 10 mg PO BID PRN 12/29/20 [History] Sennosides [Senokot] 17.2 mg PO BEDTIME PRN 12/29/20 [History] Acetaminophen [Tylenol] 650 mg PO Q4H PRN tablet 12/30/20 [Rx] Aspirin 81 mg PO DAILY tab.chew 12/30/20 [Rx] diphenhydrAMINE [Benadryl] 25 mg PO Q4H PRN cap 12/30/20 [Rx] Past Medical History HEENT History: Reports: Glaucoma Cardiovascular History: Reports: High Cholesterol, PVD Gastrointestinal History: Reports: Diverticulosis, GERD Musculoskeletal History: Reports: Neck Pain, Chronic, Other (See Below) Other Musculoskeletal History: stenosis Neurological History: Reports: Neuropathy, Peripheral Psychiatric History: Reports: Addiction, Anxiety, Depression, Other (See Below) Other Psychiatric History: ALCOHOLISM IN REMISSION. INSOMNIA Oncologic (Cancer) History: Reports: Pancreatic - Past Surgical History HEENT Surgical History: Reports: Tonsillectomy Other HEENT Surgeries/Procedures: tonsillectomy when he was 9 or 10 years GI Surgical History: Reports: Colonoscopy Endocrine Surgical History: Reports: None Neurological Surgical History: Reports: Discectomy Musculoskeletal Surgical History: Reports: Other (See Below) Other Musculoskeletal Surgeries/Procedures:: Had a back surgery 2x. Social & Family History - Tobacco Use Tobacco Use Status *Q: Unknown Ever Used Tobacco (Nonsmoker) - Caffeine Use Caffeine Use: Reports: None Other Caffeine Use: Not taking caffeine since he was diagnosed wit cancer since September. - Alcohol Use Alcohol Use History: Yes Alcohol Use Comment: Alcoholism but sober for some time. - Living Situation & Occupation Occupation: Retired (Retired nurse.) Review of Systems - Review of Systems Review Of Systems: See Below Constitutional: Reports: Weakness. Denies: Fever Eyes: Denies: Vision Change Ears: Denies: Pain Nose: Denies: Congestion, Pain Mouth/Throat: Denies: Difficulty Swallowing, Painful Swallowing Respiratory: Denies: Shortness of Breath, Cough Cardiovascular: Denies: Chest Pain, Lightheadedness GI/Abdominal: Denies: Nausea, Vomiting Genitourinary: Denies: Dysuria, Hematuria Musculoskeletal: Reports: Leg Pain, Foot Pain Skin: Reports: Change in Color (Jaundiced). Denies: Diaphoresis Neurological: Reports: Difficulty Walking, Weakness (Generalized weakness) Psychiatric: Denies: Confusion, Anxiety ED EXAM, GENERAL - Physical Exam Exam: See Below Exam Limited By: No Limitations General Appearance: Alert, Moderate Distress (Appears in some pain.), Cachetic, Other (Jaundiced) Eye Exam: Bilateral Eye: EOMI, Other (Sclera are icteric) Ears: Normal External Exam, Hearing Grossly Normal Ear Exam: Bilateral Ear: Auricle Normal Nose: Normal Inspection, Normal Mucosa, No Blood Throat/Mouth: Normal Inspection, Normal Lips, Normal Oropharynx, Normal Voice, No Airway Compromise Head: Atraumatic, Normocephalic Neck: Normal Inspection, Supple, Non-Tender, Full Range of Motion Respiratory/Chest: No Respiratory Distress, Lungs Clear, Normal Breath Sounds, No Accessory Muscle Use, Chest Non-Tender Cardiovascular: Normal Peripheral Pulses, Regular Rate, Rhythm, No Murmur Peripheral Pulses: 2+: Radial (L), Radial (R), Dorsalis Pedis (L), Dorsalis Pedis (R) GI/Abdominal: Normal Bowel Sounds, Soft, Non-Tender Back Exam: Normal Inspection. No: Paraspinal Tenderness, Vertebral Tenderness Extremities: Normal Range of Motion, Normal Capillary Refill, Pedal Edema (Bilaterally but right is greater than left), Other (Tender with palpation over the ankle and foot and also the knee on the right side. No crepitus.) Neurological: Alert, Oriented, CN II-XII Intact, Normal Cognition, No Motor/Sensory Deficits Psychiatric: Normal Affect Skin Exam: Warm, Dry, Intact, No Rash, Jaundice Course - Vital Signs Last Recorded V/S: Last Vital Signs Temp 36.2 C 02/21/21 17:44 Pulse 57 L 02/21/21 17:44 Resp 18 08/28/21 17:44 BP 91/44 L 02/21/21 17:44 Pulse Ox 99 02/21/21 17:44 - Orders/Labs/Meds Orders: Active Orders 24 hr Category Date Time Status Ankle Min 3V Rt [CR] Stat Exams 02/21/21 18:03 Taken Foot Comp Min 3V Rt [CR] Stat Exams 02/21/21 18:03 Taken Knee 1V or 2V Rt [CR] Stat Exams 02/21/21 18:03 Taken Tibia Fibula Rt [CR] Stat Exams 02/21/21 18:03 Taken - Radiology Interpretation Free Text/Narrative:: Right knee x-ray shows no definite fracture per my read Right tib-fib x-ray shows no shaft fracture per my read but there is an area on the distal fibula that is possibly a nondisplaced fracture per my read Right ankle x-ray shows probable nondisplaced fracture of the distal fibula per my read. Right foot x-ray shows no definite abnormality per my read. - Re-Assessments/Exams Free Text/Narrative Re-Assessment/Exam: 02/21/21 19:18: There is probable nondisplaced right distal fracture. He would like an orthotic boot and I think this would be good treatment for this. He does not want referral to an orthopedist. He would also like "a few pain pills" and I will give him a take home pack of hydrocodone 5/325. He is to follow-up with his primary provider. Departure - Departure Time of Disposition: 19:30 Disposition: Home, Self-Care 01 Condition: Fair (Stable) Clinical Impression: Multiple falls Closed fracture of right distal fibula Qualifiers: Encounter type: initial encounter Fracture morphology: other fracture Qualified Code(s): S82.831A - Other fracture of upper and lower end of right fibula, initial encounter for closed fracture Pancreatic cancer Qualifiers: Pancreatic malignancy location: unspecified Qualified Code(s): C25.9 - Malignant neoplasm of pancreas, unspecified - Discharge Information Instructions: Nondisplaced Fibular Ankle Fracture Treated With Immobilization Referrals: Claudia Downing, [employer] [Primary Care Provider] - Additional Instructions: You have a fracture of the outside of your ankle (since the distal fibula). It is nondisplaced. Use the orthotic boot for support and try to limit weight- bearing on your right foot using your walker. Medication as prescribed for more severe pain (hydrocodone 5/325). This is a take home pack and has 4 tablets, you can take one tablet every 6 hours as needed for pain. Follow-up with your primary provider. Back to the emergency department for worsening pain or any concerns. Sepsis Event Note (ED) - Focused Exam Vital Signs: Vital Signs Temp Pulse Resp BP Pulse Ox 02/21/21 17:44 36.2 C 57 L 18 91/44 L 99 - My Orders Last 24 Hours: My Active Orders 02/21/21 18:03 Ankle Min 3V Rt [CR] Stat Foot Comp Min 3V Rt [CR] Stat Knee 1V or 2V Rt [CR] Stat Tibia Fibula Rt [CR] Stat - Assessment/Plan Last 24 Hours: My Active Orders 02/21/21 18:03 Ankle Min 3V Rt [CR] Stat Foot Comp Min 3V Rt [CR] Stat Knee 1V or 2V Rt [CR] Stat Tibia Fibula Rt [CR] Stat
--- NOTE | 2021-02-23 10:52 | CR ---
INDICATION: Fall with injury. RIGHT FOOT: Three views of the right foot were obtained 02/19/21 - no comparison. An appearance suggesting demineralization is noted which could be on the basis of osteomalacia or osteoporosis and should be correlated clinically. Degenerative changes are noted of moderate degree at the first metatarsal phalangeal joint and at the calcaneocuboid joint as well as the talonavicular joint, naviculocuneiform joint medially and to a mild extent also at the DIPJs of the third and fourth toes and also the fifth toe DIPJ. A definite acute fracture or dislocation was not identified in the foot. However, there is noted an undisplaced oblique fracture through the distal shaft and metaphysis of the lateral malleolus. IMPRESSION: 1. Distal fibular fracture site in good position and alignment. 2. Demineralization. 3. Osteoarthritis. MTDD
--- NOTE | 2021-02-23 10:55 | CR ---
INDICATION: Fall with injury. RIGHT ANKLE: Three views of the right ankle reveal the ankle mortise to appear grossly intact. However, there is noted an undisplaced fracture obliquely through the distal shaft and metaphysis of the fibula in good position and alignment - essentially anatomic. No significant-appearing degenerative changes were identified. Demineralization is suggested. IMPRESSION: 1. Distal fibular fracture with almost anatomic position and alignment. 2. Demineralization. MTDD
--- NOTE | 2021-02-23 10:57 | CR ---
INDICATION: Fall with injury. RIGHT TIBIA AND FIBULA: Frontal and lateral views of the right tibia and fibula reveal distal fibular fracture site at the distal shaft and metaphysis in good position and alignment. Somewhat demineralized appearance is suggested. MTDD
--- NOTE | 2021-02-23 11:00 | CR ---
INDICATION: Fall with injury. RIGHT KNEE: Three views of the right knee were obtained 02/21/21 - no comparisons. There are some mild degenerative changes at the intercondylar spines. Femorotibial joint spaces appear to be fairly well maintained. A definite acute fracture or dislocation was not identified - no joint effusion was identified. Somewhat demineralized appearance is noted. Some minimal arterial calcifications are noted posteriorly. IMPRESSION: 1. No acute fracture or dislocation. 2. Demineralization suggested. 3. Osteoarthritis of a mild degree. 4. Probable ASD. MTDD
== END 2021-02-21 20:20 | disposition home or self-care (01) ==
LOC: FB.ED 17:41
DX: S82.831A Other fracture of upper and lower end of right fibula, initial encounter for closed fracture (principal); C25.9 Malignant neoplasm of pancreas, unspecified; R29.6 Repeated falls; E78.00 Pure hypercholesterolemia, unspecified; K21.9 Gastro-esophageal reflux disease without esophagitis; Z88.8 Allergy status to other drugs, medicaments and biological substances; W18.39XA Other fall on same level, initial encounter; Y92.009 Unspecified place in unspecified non-institutional (private) residence as the place of occurrence of the external cause
CPT/HCPCS: 73560; 73590; 73610; 73630; 99284; A9270